=== PATIENT | female | born 1970 | race African-American/Black ===

== ENCOUNTER 2016-06-02 17:48 | Emergency (ER) | payer MEDICARE, MEDICAID ==
[~2016-06-02] VITALS: Ht 162.6 cm; Wt 97.3 kg
[~2016-06-02 17:48] MED LIST: 00186-0370-20 IH; ADVAIR 500/28 DISKU1 IH; ALBUTEROL0.83 MG/ML IH; AMBIEN 10MG10 MG PO; AMLODIPINE10 MG PO; AMPICILLIN500 MG PO; ATROVENT I0.2 MG/1 M IH; BACTRIM DS 8001 TAB PO; BUPROBAN150 MG PO; CEPHALEXIN500 M1 PO; CIPRO 500MG TA500 MG PO; CLEOCIN HCL300 MG PO; DAZIDOX10 MG PO; DOXYCYCLINE 10100 MG PO; EFFEXOR-XR150 MG PO; FENTANYL 25 MCG TD; FLAGYL500 MG PO; FLEXERIL 1010 MG/TAB PO; HCTZ 25MG TAB25 MG PO; HUMALOG PEN100 U/ML SC; HUMALOG100 U/ML SC; HUMALOG100 U/ML SQ; IPRATROPIUM BROM3 M1 IH; LANTUS SOLOS100 U/ML SC; LANTUS100 U/ML; LANTUS100 U/ML SC; LEVAQUIN 750MG750 M1 PO; LORTAB 10/500 51 TAB PO; LORTAB 5/500 501 TAB PO; LYRICA200 MG PO; METFORMIN1000 MG PO; MILLIPRED5 MG PO; MOTRIN 600600 MG/TAB PO; NAPROSYN375 MG PO; NORCO 325 MG-101 TAB PO; NORCO 325 MG-51 TAB PO; NORCO 325 MG-7.1 TAB PO; NORVASC 10MG10 MG PO; OXYCONTIN 10MG10 MG PO; OXYCONTIN15 MG PO; PERCOCET 325 MG1 TA2 PO; PREDNISONE20 MG PO; PROAIR HFA0.09 MG/AC IH; PROVENTIL0.09 MG/A1 IH; RT ALBUTER2.5 MG/0.5 IH; SEPTRA DS 8001 TAB PO; SINGULAIR10 MG PO; SPIRIVA18 MCG IH; SYMBICORT1 AE3 IH; VALTREX1 GM PO; XANAX 1MG1 MG PO; XOPENEX1.25 MG/0. IH; ZITHROMAX 250M250 MG PO; ZITHROMAX Z PA250 MG PO; [UNRECOGNIZED DRUG - SUPPLY]
[2016-06-02 17:51] VITALS: TEMP 98.4
[2016-06-02 18:39] LABS: BASO # 0.1 (0.0-0.2); BASO % 0.5 % (0.0-2.0); EOS # 0.1 (0.0-0.7); EOS % 1.1 % (0-4.0); HEMATOCRIT 37.8 % (37.0-47.0); LYMPH # 3.8 (1.2-3.4); LYMPH % 32.8 % (20.0-51.0); MEAN CELL VOLUME 82 fl (80.0-100.0); MEAN CORPUSCULAR HEMOGLOBIN 28 pg (27.0-31.0); MEAN CORPUSCULAR HGB CONC 34 g/dl (33.0-37.0); MEAN PLATELET VOLUME 11.1 fl (7.4-10.4); MONO # 0.6 (0.1-0.6); MONO % 5.3 % (1.7-9.3); PLATELET COUNT 249 K/mm3 (130-400); RED BLOOD COUNT 4.59 M/mm3 (4.10-5.30); WHITE BLOOD COUNT 11.6 K/mm3 (4.8-10.8)
[2016-06-02 18:51] LABS: ADJUSTED CALCIUM 9.4 mg/dL (8.4-10.2); ALBUMIN 4.1 gm/dL (3.5-5.0); BILIRUBIN,TOTAL 0.7 mg/dL (0.0-1.0); CALCIUM 9.5 mg/dL (8.4-10.2); CREATININE, serum 0.5 mg/dL (0.52-1.25); POTASSIUM 3.7 mmol/L (3.4-5.0); TOTAL PROTEIN 7.7 gm/dL (6.4-8.2)
[2016-06-02 18:56] LABS: PH 5 (5-8); SQUAMOUS EPITHELIAL 0-2 /hpf; URINE APPEARANCE Clear; URINE BACTERIA None Seen /hpf; URINE BILIRUBIN Negative (NEGATIVE); URINE BLOOD 1+ (NEGATIVE); URINE COLOR Straw; URINE GLUCOSE 3+ (NEGATIVE); URINE KETONE Negative (NEGATIVE); URINE RBC 0-2 /hpf; URINE UROBILINOGEN Negative (NEGATIVE)
[2016-06-02] MEDS ORDERED: NORVASC 10MG10 MG PO (19:18)
[2016-06-02 20:12] VITALS: BP 174/108; PULSE 102
== END 2016-06-02 20:13 | disposition home or self-care (01) ==
LOC: COL.ER 17:48
PROVIDERS: Nurse Practitioner
DX: E11.40 Type 2 diabetes mellitus with diabetic neuropathy, unspecified (principal); Z79.84 Long term (current) use of oral hypoglycemic drugs; I10 Essential (primary) hypertension; Z79.4 Long term (current) use of insulin; M79.672 Pain in left foot; M79.671 Pain in right foot
CPT/HCPCS: J1170; J2405; J3010; J7030

== ENCOUNTER 2016-12-07 18:58 | Emergency (ER) | payer MEDICARE, MEDICAID ==
[~2016-12-07] VITALS: Ht 157.5 cm; Wt 90.9 kg
[2016-12-07 19:15] VITALS: TEMP 98
[2016-12-07] MEDS ORDERED: NORVASC 10MG10 MG PO (19:21)
[2016-12-07 21:52] LABS: BASO % 0.2 % (0.0-2.0); GRAN # 14.4 (1.4-6.5); GRAN % 88.4 % (42.2-75.2); HEMATOCRIT 38.6 % (37.0-47.0); HEMOGLOBIN 13.2 g/dl (12.5-16.0); LYMPH # 1.4 (1.2-3.4); LYMPH % 8.7 % (20.0-51.0); MEAN CELL VOLUME 85 fl (80.0-100.0); MEAN CORPUSCULAR HEMOGLOBIN 29 pg (27.0-31.0); MEAN CORPUSCULAR HGB CONC 34 g/dl (33.0-37.0); MONO # 0.3 (0.1-0.6); MONO % 2.1 % (1.7-9.3); PLATELET COUNT 312 K/mm3 (130-400); RED BLOOD COUNT 4.55 M/mm3 (4.10-5.30); REDCELL DISTRIBUTION WIDTH-CV 12.7 % (11.5-14.5); WHITE BLOOD COUNT 16.2 K/mm3 (4.8-10.8)
[2016-12-07 22:02] LABS: ADJUSTED CALCIUM 9.4 mg/dL (8.4-10.2); ALBUMIN 4.4 gm/dL (3.5-5.0); CALCIUM 9.7 mg/dL (8.4-10.2); CREATININE, serum 0.55 mg/dL (0.52-1.25); POTASSIUM 4.5 mmol/L (3.4-5.0)
[2016-12-07 22:22] LABS: TROPONIN-I 0.197 ng/mL (0.000-0.034)
[2016-12-07 22:53] LABS: INR 1.2 (0.8-3.0); PROTHROMBIN TIME 13.2 SECONDS (9.7-12.8)
[2016-12-07 22:55] LABS: PARTIAL THROMBOPLASTIN TIME 29.6 SECONDS (26.0-37.0)
[2016-12-08 00:19] VITALS: BP 177/133; PULSE 116
== END 2016-12-08 00:19 | disposition short-term general hospital (02) ==
LOC: COL.ER 18:58
PROVIDERS: Emergency Medicine; Nurse Practitioner
DX: I21.4 Non-ST elevation (NSTEMI) myocardial infarction (principal); I50.9 Heart failure, unspecified; I11.0 Hypertensive heart disease with heart failure; E11.9 Type 2 diabetes mellitus without complications; J44.9 Chronic obstructive pulmonary disease, unspecified; F41.9 Anxiety disorder, unspecified; M54.9 Dorsalgia, unspecified; F17.210 Nicotine dependence, cigarettes, uncomplicated; Z79.84 Long term (current) use of oral hypoglycemic drugs; Z79.4 Long term (current) use of insulin; Z98.51 Tubal ligation status; Z98.890 Other specified postprocedural states
CPT/HCPCS: J1644; J1815; J1940; J7512; Q9967

== ENCOUNTER 2016-12-30 13:52 | Emergency (ER) | payer MEDICARE, MEDICAID ==
[~2016-12-30] VITALS: Ht 157.5 cm; Wt 95.5 kg
[2016-12-30 13:54] VITALS: TEMP 98.1
[2016-12-30] MEDS ORDERED: PLAVIX 75MG TAB75 MG PO (14:33)
[2016-12-30 14:45] LABS: INR 1.2 (0.8-3.0); PROTHROMBIN TIME 13.4 SECONDS (9.7-12.8)
[2016-12-30 14:52] LABS: BASO # 0.1 (0.0-0.2); BASO % 0.5 % (0.0-2.0); EOS # 0.1 (0.0-0.7); GRAN # 5.8 (1.4-6.5); GRAN % 57.5 % (42.2-75.2); HEMATOCRIT 38.5 % (37.0-47.0); HEMOGLOBIN 13.2 g/dl (12.5-16.0); LYMPH # 3.4 (1.2-3.4); LYMPH % 33.3 % (20.0-51.0); MEAN CELL VOLUME 86 fl (80.0-100.0); MEAN CORPUSCULAR HEMOGLOBIN 30 pg (27.0-31.0); MEAN CORPUSCULAR HGB CONC 34 g/dl (33.0-37.0); MEAN PLATELET VOLUME 11.2 fl (7.4-10.4); MONO # 0.8 (0.1-0.6); MONO % 7.4 % (1.7-9.3); PLATELET COUNT 343 K/mm3 (130-400); RED BLOOD COUNT 4.46 M/mm3 (4.10-5.30); REDCELL DISTRIBUTION WIDTH-CV 12.9 % (11.5-14.5); WHITE BLOOD COUNT 10.1 K/mm3 (4.8-10.8)
[2016-12-30 15:03] LABS: ADJUSTED CALCIUM 9.9 mg/dL (8.4-10.2); ALANINE AMINOTRANSFERASE 24 U/L (9-52); ALBUMIN 4.2 gm/dL (3.5-5.0); ALKALINE PHOSPHATASE 74 U/L (50-136); ANION GAP 13 mmol/L (7-16); BILIRUBIN,TOTAL 0.5 mg/dL (0.0-1.0); BLOOD UREA NITROGEN 13 mg/dL (7-17); CALCIUM 10.1 mg/dL (8.4-10.2); CARBON DIOXIDE 31 mmol/L (22-30); CHLORIDE 92 mmol/L (98-107); CREATINE KINASE 57 U/L (30-135); CREATININE, serum 0.65 mg/dL (0.52-1.25); LIPASE 42 U/L (23-300); POTASSIUM 3.6 mmol/L (3.4-5.0); SODIUM 135 mmol/L (137-145)
[2016-12-30 15:05] LABS: GLUCOSE 487 mg/dL (74-106)
[2016-12-30 15:17] LABS: TROPONIN-I < 0.012 ng/mL (0.000-0.034)
[2016-12-30 15:58] VITALS: BP 141/93; PULSE 102
== END 2016-12-30 16:01 | disposition left against medical advice (07) ==
LOC: COL.ER 13:52 → MEDICAL 15:15 → COL.ER 15:15
PROVIDERS: Emergency Medicine
DX: R53.1 Weakness (principal); E11.9 Type 2 diabetes mellitus without complications; I10 Essential (primary) hypertension; I25.10 Atherosclerotic heart disease of native coronary artery without angina pectoris; J44.9 Chronic obstructive pulmonary disease, unspecified; Z79.4 Long term (current) use of insulin; Z79.02 Long term (current) use of antithrombotics/antiplatelets; Z95.5 Presence of coronary angioplasty implant and graft
CPT/HCPCS: J1815

== ENCOUNTER 2017-02-28 22:43 | Emergency (ER) | payer MEDICARE, MEDICAID ==
[~2017-02-28] VITALS: Ht 157.5 cm; Wt 109.1 kg
[~2017-02-28 22:43] MED LIST changes: +PLAVIX 75MG TAB75 MG PO
[2017-02-28 22:51] VITALS: TEMP 96.7
[2017-02-28] MEDS ORDERED: ZESTRIL 10MG10 MG PO (23:14)
[2017-02-28] MEDS ORDERED: HCTZ 25MG TAB25 MG PO (23:18)
[2017-02-28 23:21] VITALS: BP 131/88; PULSE 102
[2017-02-28 23:21] LABS: BASO # 0.1 (0.0-0.2); BASO % 0.5 % (0.0-2.0); EOS # 0.1 (0.0-0.7); GRAN % 61.5 % (42.2-75.2); HEMOGLOBIN 12.5 g/dl (12.5-16.0); LYMPH # 3.8 (1.2-3.4); MEAN CELL VOLUME 84 fl (80.0-100.0); MEAN CORPUSCULAR HEMOGLOBIN 29 pg (27.0-31.0); MEAN CORPUSCULAR HGB CONC 35 g/dl (33.0-37.0); MEAN PLATELET VOLUME 12.6 fl (7.4-10.4); MONO % 7.7 % (1.7-9.3); PLATELET COUNT 254 K/mm3 (130-400); RED BLOOD COUNT 4.25 M/mm3 (4.10-5.30)
[2017-02-28 23:33] LABS: INR 1.1 (0.8-3.0); PROTHROMBIN TIME 12.6 SECONDS (9.7-12.8)
[2017-02-28 23:38] LABS: HEMATOCRIT 35.7 % (37.0-47.0)
[2017-02-28 23:49] LABS: ADJUSTED CALCIUM 9.9 mg/dL (8.4-10.2); ALANINE AMINOTRANSFERASE 36 U/L (9-52); ALBUMIN 4.2 gm/dL (3.5-5.0); ALKALINE PHOSPHATASE 95 U/L (50-136); ANION GAP 9 mmol/L (7-16); BILIRUBIN,TOTAL 0.5 mg/dL (0.0-1.0); BLOOD UREA NITROGEN 18 mg/dL (7-17); CALCIUM 10.1 mg/dL (8.4-10.2); CARBON DIOXIDE 30 mmol/L (22-30); CHLORIDE 92 mmol/L (98-107); CREATINE KINASE 113 U/L (30-135); LIPASE 72 U/L (23-300); POTASSIUM 3.5 mmol/L (3.4-5.0); SODIUM 131 mmol/L (137-145); TOTAL PROTEIN 7.6 gm/dL (6.4-8.2)
[2017-02-28 23:51] LABS: GLUCOSE 551 mg/dL (74-106)
[2017-03-01] LABS: B-TYPE NATRIURETIC PEPTIDE 258 pg/mL (0-125)
[2017-03-01 00:03] LABS: TROPONIN-I < 0.012 ng/mL (0.000-0.034)
== END 2017-03-01 00:33 | disposition left against medical advice (07) ==
LOC: COL.ER 22:43
PROVIDERS: Emergency Medicine
DX: R07.89 Other chest pain (principal); E11.9 Type 2 diabetes mellitus without complications; I11.0 Hypertensive heart disease with heart failure; I50.9 Heart failure, unspecified; J44.9 Chronic obstructive pulmonary disease, unspecified; I25.2 Old myocardial infarction; F17.210 Nicotine dependence, cigarettes, uncomplicated; Z95.5 Presence of coronary angioplasty implant and graft; Z98.51 Tubal ligation status; Z98.890 Other specified postprocedural states

== ENCOUNTER 2017-04-27 07:32 | Day surgery (SDC) | payer MEDICARE, MEDICAID ==
[2017-04-27] VITALS (12 sets, daily range): BP systolic 116–155; BP diastolic 77–121; PULSE 80–99; TEMP 97.3–97.7
[~2017-04-27] VITALS: Ht 157.6 cm; Wt 104.0 kg
[~2017-04-27 07:32] MED LIST changes: +ZESTRIL 10MG10 MG PO
[2017-04-27 08:10] LABS: HEMOGLOBIN 12.5 g/dl (12.5-16.0); MEAN CELL VOLUME 85 fl (80.0-100.0); MEAN CORPUSCULAR HEMOGLOBIN 30 pg (27.0-31.0); MEAN CORPUSCULAR HGB CONC 35 g/dl (33.0-37.0); PLATELET COUNT 222 K/mm3 (130-400); RED BLOOD COUNT 4.23 M/mm3 (4.10-5.30); REDCELL DISTRIBUTION WIDTH-CV 12.9 % (11.5-14.5)
[2017-04-27 08:12] LABS: HEMATOCRIT 35.9 % (37.0-47.0)
[2017-04-27] MEDS ORDERED: VENTOLIN0.09 MG IH (08:13)
[2017-04-27] MEDS ORDERED: ALBUTEROL0.83 MG/ML IH (08:14)
[2017-04-27 08:22] LABS: INR 1.1 (0.8-3.0); PROTHROMBIN TIME 12.4 SECONDS (9.7-12.8)
[2017-04-27 08:30] LABS: CALCIUM 9.6 mg/dL (8.4-10.2); CREATININE, serum 0.73 mg/dL (0.52-1.25); POTASSIUM 3.5 mmol/L (3.4-5.0)
[2017-04-27] MEDS ORDERED: ELAVIL100 MG PO (08:56)
[2017-04-27] MEDS ORDERED: LIPITOR 80MG80 MG PO (08:57)
[2017-04-27] MEDS ORDERED: ASPIRIN E.C. 8181 MG PO (08:57)
[2017-04-27] MEDS ORDERED: COREG 25MG25 MG/TAB PO (08:58)
[2017-04-27] MEDS ORDERED: COMBIRESP IH (09:00)
[2017-04-27] MEDS ORDERED: IPRATROPIUM BROM3 M1 IH (09:05)
[2017-04-27] MEDS ORDERED: ALLEGRA 180MG180 MG PO (09:06)
[2017-04-27] MEDS ORDERED: NORCO 325 MG-7.1 TAB PO (09:07)
[2017-04-27] MEDS ORDERED: LASIX 40MG TABL40 MG PO (09:07)
[2017-04-27] MEDS ORDERED: NOVOLOG 100U100 U/M1 SQ (09:08)
[2017-04-27] MEDS ORDERED: IMDUR 60MG60 MG/TAB PO (09:09)
[2017-04-27] MEDS ORDERED: LYRICA 150MG C150 MG PO (09:11)
[2017-04-27] MEDS ORDERED: SINGULAIR 110 MG/TAB PO (09:12)
[2017-04-27] MEDS ORDERED: MAG-OX 400400 MG/TAB PO (09:12)
[2017-04-27] MEDS ORDERED: MULTI VITAMINS1 TAB PO (09:12)
[2017-04-27] MEDS ORDERED: NITROSTAT0.4 MG/TAB SL (09:13)
[2017-04-27] MEDS ORDERED: ZANTAC 300300 MG PO (09:13)
[2017-04-27] MEDS ORDERED: B-121000 MCG PO (09:14)
[2017-04-27] MEDS ORDERED: AMBIEN 10MG10 MG PO (09:14)
[2017-04-27] MEDS ORDERED: COREG12.5 MG PO (10:36)
[2017-04-27] MEDS ORDERED: NORVASC 5MG5 MG/TAB PO (10:36)
== END 2017-04-27 14:53 | disposition home or self-care (01) ==
LOC: COL.CAR 07:32
PROVIDERS: Internal Medicine Cardiovascular Disease
DX: I25.119 Atherosclerotic heart disease of native coronary artery with unspecified angina pectoris (principal); R94.39 Abnormal result of other cardiovascular function study; J44.9 Chronic obstructive pulmonary disease, unspecified; I11.0 Hypertensive heart disease with heart failure; I50.20 Unspecified systolic (congestive) heart failure; I24.9 Acute ischemic heart disease, unspecified; F31.9 Bipolar disorder, unspecified; E11.40 Type 2 diabetes mellitus with diabetic neuropathy, unspecified; F17.210 Nicotine dependence, cigarettes, uncomplicated; Z79.4 Long term (current) use of insulin; Z79.01 Long term (current) use of anticoagulants; Z79.82 Long term (current) use of aspirin; Z95.5 Presence of coronary angioplasty implant and graft; Z83.3 Family history of diabetes mellitus
CPT/HCPCS: C1769; J1644; J1815; J2250; J3010; Q9967

== ENCOUNTER 2017-07-07 19:52 | Emergency (ER) | payer MEDICARE, MEDICAID ==
[~2017-07-07] VITALS: Ht 157.5 cm; Wt 104.5 kg
[~2017-07-07 19:52] MED LIST changes: +ALLEGRA 180MG180 MG PO; +ASPIRIN E.C. 8181 MG PO; +B-121000 MCG PO; +COMBIRESP IH; +COREG 25MG25 MG/TAB PO; +COREG12.5 MG PO; +ELAVIL100 MG PO; +IMDUR 60MG60 MG/TAB PO; +LASIX 40MG TABL40 MG PO; +LIPITOR 80MG80 MG PO; +LYRICA 150MG C150 MG PO; +MAG-OX 400400 MG/TAB PO; +MULTI VITAMINS1 TAB PO; +NITROSTAT0.4 MG/TAB SL; +NORVASC 5MG5 MG/TAB PO; +NOVOLOG 100U100 U/M1 SQ; +SINGULAIR 110 MG/TAB PO; +VENTOLIN0.09 MG IH; +ZANTAC 300300 MG PO
[2017-07-07 20:01] VITALS: BP 118/69; TEMP 98
[2017-07-07 20:34] LABS: COLLECTION METHOD CLEAN CATCH
[2017-07-07 20:41] LABS: PH 5 (5-8); SQUAMOUS EPITHELIAL 0-2 /hpf; URINE APPEARANCE Clear; URINE BACTERIA None Seen /hpf; URINE BILIRUBIN Negative (NEGATIVE); URINE BLOOD Negative (NEGATIVE); URINE COLOR Straw; URINE GLUCOSE 3+ (NEGATIVE); URINE KETONE Negative (NEGATIVE); URINE LEUKOCYTE ESTERASE Negative (NEGATIVE); URINE NITRATE Negative (NEGATIVE); URINE PROTEIN(semi-quant) Negative (NEGATIVE); URINE RBC 0-2 /hpf; URINE UROBILINOGEN Negative (NEGATIVE)
[2017-07-07] MEDS ORDERED: FLEXERIL 1010 MG/TAB PO (20:58)
[2017-07-07 21:20] VITALS: PULSE 90
== END 2017-07-07 21:20 | disposition home or self-care (01) ==
LOC: COL.ER 19:52
PROVIDERS: Physician Assistant
DX: S33.9XXA Sprain of unspecified parts of lumbar spine and pelvis, initial encounter (principal); M46.1 Sacroiliitis, not elsewhere classified; E11.9 Type 2 diabetes mellitus without complications; I10 Essential (primary) hypertension; I25.10 Atherosclerotic heart disease of native coronary artery without angina pectoris; I25.2 Old myocardial infarction; J44.9 Chronic obstructive pulmonary disease, unspecified; F17.210 Nicotine dependence, cigarettes, uncomplicated; Z95.5 Presence of coronary angioplasty implant and graft; Z98.51 Tubal ligation status; Z98.890 Other specified postprocedural states; Z79.4 Long term (current) use of insulin; Z79.02 Long term (current) use of antithrombotics/antiplatelets; Z79.82 Long term (current) use of aspirin; X50.0XXA Overexertion from strenuous movement or load, initial encounter
CPT/HCPCS: J2360

== ENCOUNTER 2017-07-09 19:54 | Emergency (ER) | payer MEDICARE, MEDICAID ==
[~2017-07-09] VITALS: Ht 162.6 cm; Wt 113.6 kg
[2017-07-09 19:55] VITALS: BP 155/77; PULSE 98; TEMP 98.5
== END 2017-07-09 20:01 | disposition left against medical advice (07) ==
LOC: COL.ER 19:54
DX: R53.81 Other malaise (principal)

== ENCOUNTER 2017-07-17 20:44 | Emergency (ER) | payer MEDICARE, MEDICAID ==
[~2017-07-17] VITALS: Ht 157.5 cm; Wt 104.5 kg
[2017-07-17 20:49] VITALS: BP 153/80; TEMP 98.9
[2017-07-18 00:44] VITALS: PULSE 100
== END 2017-07-18 00:45 | disposition home or self-care (01) ==
LOC: COL.ER 20:44
DX: R21 Rash and other nonspecific skin eruption (principal); I11.0 Hypertensive heart disease with heart failure; I50.9 Heart failure, unspecified; I25.10 Atherosclerotic heart disease of native coronary artery without angina pectoris; J44.9 Chronic obstructive pulmonary disease, unspecified; E11.9 Type 2 diabetes mellitus without complications; I25.2 Old myocardial infarction; Z79.4 Long term (current) use of insulin; Z79.82 Long term (current) use of aspirin

== ENCOUNTER 2017-09-04 09:44 | Emergency (ER) | payer MEDICARE, MEDICAID ==
[~2017-09-04] VITALS: Ht 154.9 cm; Wt 97.7 kg
[2017-09-04 09:47] VITALS: TEMP 98.1
[2017-09-04 10:51] VITALS: BP 131/78; PULSE 101
== END 2017-09-04 10:51 | disposition home or self-care (01) ==
LOC: COL.ER 09:44
DX: E11.21 Type 2 diabetes mellitus with diabetic nephropathy (principal); J45.909 Unspecified asthma, uncomplicated; I10 Essential (primary) hypertension; Z79.4 Long term (current) use of insulin; Z79.02 Long term (current) use of antithrombotics/antiplatelets; Z79.82 Long term (current) use of aspirin

== ENCOUNTER 2017-11-02 12:25 | Emergency (ER) | payer MEDICARE, MEDICAID ==
[~2017-11-02] VITALS: Ht 157.5 cm; Wt 100.0 kg
[2017-11-02 12:38] VITALS: TEMP 97.3
[2017-11-02 13:01] LABS: COLLECTION METHOD CLEAN CATCH
[2017-11-02 13:05] LABS: PH 6 (5-8); SQUAMOUS EPITHELIAL 0-2 /hpf; URINE APPEARANCE Clear; URINE BACTERIA None Seen /hpf; URINE BILIRUBIN Negative (NEGATIVE); URINE BLOOD Negative (NEGATIVE); URINE COLOR Straw; URINE GLUCOSE 3+ (NEGATIVE); URINE KETONE Negative (NEGATIVE); URINE LEUKOCYTE ESTERASE Negative (NEGATIVE); URINE NITRATE Negative (NEGATIVE); URINE PROTEIN(semi-quant) Negative (NEGATIVE); URINE RBC 0-2 /hpf; URINE UROBILINOGEN Negative (NEGATIVE)
[2017-11-02 13:43] LABS: BASO % 0.2 % (0.0-2.0); EOS # 0.1 (0.0-0.7); EOS % 0.7 % (0-4.0); GRAN # 10.9 (1.4-6.5); GRAN % 73.6 % (42.2-75.2); HEMOGLOBIN 11.9 g/dl (12.5-16.0); LYMPH # 2.3 (1.2-3.4); LYMPH % 15.2 % (20.0-51.0); MEAN CELL VOLUME 86 fl (80.0-100.0); MEAN CORPUSCULAR HEMOGLOBIN 30 pg (27.0-31.0); MEAN CORPUSCULAR HGB CONC 35 g/dl (33.0-37.0); MEAN PLATELET VOLUME 10.6 fl (7.4-10.4); MONO # 1.5 (0.1-0.6); MONO % 9.9 % (1.7-9.3); PLATELET COUNT 294 K/mm3 (130-400); RED BLOOD COUNT 3.93 M/mm3 (4.10-5.30); REDCELL DISTRIBUTION WIDTH-CV 14.7 % (11.5-14.5)
[2017-11-02 13:49] LABS: HEMATOCRIT 33.9 % (37.0-47.0)
[2017-11-02 13:56] LABS: ALBUMIN 3.8 gm/dL (3.5-5.0); BILIRUBIN,TOTAL 0.4 mg/dL (0.0-1.0); C-REACTIVE PROTEIN 6.8 mg/dL (0.0-0.9); CREATININE, serum 0.57 mg/dL (0.52-1.25); POTASSIUM 3.3 mmol/L (3.4-5.0); TOTAL PROTEIN 7.3 gm/dL (6.4-8.2)
[2017-11-02] MEDS ORDERED: ZOFRAN ODT4 MG PO (18:02)
[2017-11-02 18:10] VITALS: BP 144/67; PULSE 90
== END 2017-11-02 18:11 | disposition home or self-care (01) ==
LOC: COL.ER 12:25
PROVIDERS: Nurse Practitioner Primary Care
DX: R10.11 Right upper quadrant pain (principal); I10 Essential (primary) hypertension; E11.40 Type 2 diabetes mellitus with diabetic neuropathy, unspecified; J44.9 Chronic obstructive pulmonary disease, unspecified; F17.210 Nicotine dependence, cigarettes, uncomplicated; I25.2 Old myocardial infarction; Z95.5 Presence of coronary angioplasty implant and graft; Z79.4 Long term (current) use of insulin; Z79.02 Long term (current) use of antithrombotics/antiplatelets
CPT/HCPCS: J1885; Q9967

== ENCOUNTER 2017-12-26 18:34 | Emergency (ER) | payer MEDICARE, MEDICAID ==
[~2017-12-26] VITALS: Ht 157.5 cm; Wt 90.9 kg
[~2017-12-26 18:34] MED LIST changes: +ZOFRAN ODT4 MG PO
[2017-12-26 18:42] VITALS: TEMP 98.1
[2017-12-26 21:24] VITALS: BP 181/98; PULSE 98
== END 2017-12-26 21:24 | disposition home or self-care (01) ==
LOC: COL.ER 18:34
DX: K59.00 Constipation, unspecified (principal); E11.9 Type 2 diabetes mellitus without complications; I50.9 Heart failure, unspecified; Z95.5 Presence of coronary angioplasty implant and graft; Z79.4 Long term (current) use of insulin; Z79.82 Long term (current) use of aspirin

== ENCOUNTER 2018-03-16 18:53 | Emergency (ER) | payer MEDICARE, MEDICAID ==
[~2018-03-16] VITALS: Ht 162.6 cm; Wt 86.4 kg
[2018-03-16 19:02] VITALS: TEMP 98
[2018-03-16 22:29] VITALS: BP 151/104; PULSE 110
== END 2018-03-16 22:34 | disposition home or self-care (01) ==
LOC: COL.ER 18:53
DX: H16.002 Unspecified corneal ulcer, left eye (principal); I10 Essential (primary) hypertension; J44.9 Chronic obstructive pulmonary disease, unspecified; E78.5 Hyperlipidemia, unspecified; E11.42 Type 2 diabetes mellitus with diabetic polyneuropathy; F17.210 Nicotine dependence, cigarettes, uncomplicated; Z79.4 Long term (current) use of insulin; Z79.82 Long term (current) use of aspirin

== ENCOUNTER 2018-05-22 20:15 | Emergency (ER) | payer MEDICARE ==
[~2018-05-22] VITALS: Ht 157.5 cm; Wt 90.9 kg
[2018-05-22 20:19] VITALS: TEMP 97.5
[2018-05-22 20:53] LABS: BASO # 0.1 (0.0-0.2); BASO % 0.4 % (0.0-2.0); EOS # 0.1 (0.0-0.7); EOS % 0.5 % (0-4.0); GRAN # 7.7 (1.4-6.5); GRAN % 67.8 % (42.2-75.2); HEMOGLOBIN 11.4 g/dl (12.5-16.0); LYMPH # 2.9 (1.2-3.4); LYMPH % 25.3 % (20.0-51.0); MEAN CELL VOLUME 80 fl (80.0-100.0); MEAN CORPUSCULAR HEMOGLOBIN 27 pg (27.0-31.0); MEAN CORPUSCULAR HGB CONC 33 g/dl (33.0-37.0); MEAN PLATELET VOLUME 11.3 fl (7.4-10.4); MONO # 0.7 (0.1-0.6); MONO % 5.7 % (1.7-9.3); PLATELET COUNT 313 K/mm3 (130-400); RED BLOOD COUNT 4.26 M/mm3 (4.10-5.30); REDCELL DISTRIBUTION WIDTH-CV 15.7 % (11.5-14.5)
[2018-05-22 20:59] LABS: HEMATOCRIT 34.1 % (37.0-47.0)
[2018-05-22 21:03] LABS: ALBUMIN 3.6 gm/dL (3.5-5.0); BILIRUBIN,TOTAL 0.6 mg/dL (0.0-1.0); CALCIUM 9.4 mg/dL (8.4-10.2); CREATININE, serum 0.57 mg/dL (0.52-1.25); POTASSIUM 3.3 mmol/L (3.4-5.0); TOTAL PROTEIN 7.5 gm/dL (6.4-8.2)
[2018-05-22 22:05] VITALS: BP 183/121; PULSE 98
[2018-05-22] MEDS ORDERED: LASIX 80MG TABL80 MG PO (22:05)
[2018-05-22] MEDS ORDERED: K-DUR 10 MEQ T10 MEQ PO (22:26)
== END 2018-05-22 22:32 | disposition home or self-care (01) ==
LOC: COL.ER 20:15
PROVIDERS: Emergency Medicine
DX: I10 Essential (primary) hypertension (principal); R60.0 Localized edema; I25.10 Atherosclerotic heart disease of native coronary artery without angina pectoris; E11.9 Type 2 diabetes mellitus without complications; J44.9 Chronic obstructive pulmonary disease, unspecified; G89.29 Other chronic pain; F17.210 Nicotine dependence, cigarettes, uncomplicated; Z79.4 Long term (current) use of insulin; Z79.2 Long term (current) use of antibiotics; Z79.82 Long term (current) use of aspirin; Z95.5 Presence of coronary angioplasty implant and graft

== ENCOUNTER 2018-06-15 17:20 | Emergency (ER) | payer MEDICARE ==
[~2018-06-15] VITALS: Ht 157.5 cm; Wt 90.9 kg
[~2018-06-15 17:20] MED LIST changes: +K-DUR 10 MEQ T10 MEQ PO; +LASIX 80MG TABL80 MG PO
[2018-06-15 17:34] VITALS: TEMP 98.5
[2018-06-15 18:29] LABS: BASO % 0.4 % (0.0-2.0); EOS # 0.1 (0.0-0.7); EOS % 0.6 % (0-4.0); GRAN # 7.5 (1.4-6.5); GRAN % 69.5 % (42.2-75.2); HEMATOCRIT 38.6 % (37.0-47.0); HEMOGLOBIN 13.3 g/dl (12.5-16.0); LYMPH # 2.5 (1.2-3.4); LYMPH % 22.9 % (20.0-51.0); MEAN CELL VOLUME 77 fl (80.0-100.0); MEAN CORPUSCULAR HEMOGLOBIN 27 pg (27.0-31.0); MEAN CORPUSCULAR HGB CONC 35 g/dl (33.0-37.0); MEAN PLATELET VOLUME 10.6 fl (7.4-10.4); MONO # 0.7 (0.1-0.6); MONO % 6.3 % (1.7-9.3); PLATELET COUNT 239 K/mm3 (130-400); RED BLOOD COUNT 5.02 M/mm3 (4.10-5.30)
[2018-06-15] MEDS ORDERED: LASIX 80MG TABL80 MG PO (18:37)
[2018-06-15] MEDS ORDERED: NITRO-DUR0.2 MG/PAT TD (18:39)
[2018-06-15 18:41] LABS: ALBUMIN 3.8 gm/dL (3.5-5.0); BILIRUBIN,TOTAL 0.4 mg/dL (0.0-1.0); CALCIUM 9.2 mg/dL (8.4-10.2); CREATININE, serum 0.66 (0.52-1.25)
[2018-06-15 18:52] LABS: TROPONIN-I 0.012 ng/mL (0.000-0.035)
[2018-06-15 18:56] LABS: POTASSIUM 2.8 mmol/L (3.4-5.0)
[2018-06-15] MEDS ORDERED: NOVOLOG 100U100 U/M1 SQ (20:11)
[2018-06-15] MEDS ORDERED: LANTUS SOLOS100 U/ML SQ (20:11)
[2018-06-15 20:50] VITALS: BP 161/95; PULSE 103
[2018-06-15] MEDS ORDERED: K-DUR20 MEQ PO (21:59)
== END 2018-06-15 22:20 | disposition home or self-care (01) ==
LOC: COL.ER 17:20
PROVIDERS: Nurse Practitioner
DX: R60.9 Edema, unspecified (principal); R07.89 Other chest pain; I25.10 Atherosclerotic heart disease of native coronary artery without angina pectoris; F17.210 Nicotine dependence, cigarettes, uncomplicated; E11.42 Type 2 diabetes mellitus with diabetic polyneuropathy; J45.909 Unspecified asthma, uncomplicated; F41.9 Anxiety disorder, unspecified; I50.9 Heart failure, unspecified; Z98.51 Tubal ligation status; Z98.890 Other specified postprocedural states; Z79.82 Long term (current) use of aspirin; Z79.02 Long term (current) use of antithrombotics/antiplatelets; Z79.4 Long term (current) use of insulin
CPT/HCPCS: J1815; J2270; J3480

== ENCOUNTER → 2018-06-30 | Outpatient (CLI) | payer MEDICARE, MEDICAID ==
[~2018-06-30] MED LIST changes: +K-DUR20 MEQ PO; +LANTUS SOLOS100 U/ML SQ; +NITRO-DUR0.2 MG/PAT TD
== END ==
LOC: COL.RAD 06-16 10:30
DX: E11.42 Type 2 diabetes mellitus with diabetic polyneuropathy (principal); M79.604 Pain in right leg

== ENCOUNTER 2019-01-04 12:48 | Day surgery (SDC) | payer MEDICARE, MEDICAID ==
[~2019-01-04] VITALS: Ht 157.5 cm; Wt 97.9 kg
[2019-01-04] VITALS (384 sets, daily range): BP systolic 121–148; BP diastolic 78–107; PULSE 89–110; TEMP 97.9–98.1; O2SAT 62–100
[2019-01-04] MEDS ORDERED: IPRATROPIUM BROM3 M1 IH (14:03)
[2019-01-04] MEDS ORDERED: GLUCOPHAGE500 MG/TAB PO (14:04)
[2019-01-04] MEDS ORDERED: COREG 25MG25 MG/TAB PO (14:11)
[2019-01-04] MEDS ORDERED: LIPITOR 40MG TA40 MG PO (14:12)
[2019-01-04] MEDS ORDERED: HCTZ12.5TAB PO (14:16)
[2019-01-04 15:37] LABS: MEAN CELL VOLUME 83 fl (80.0-100.0); MEAN CORPUSCULAR HGB CONC 33 g/dl (33.0-37.0); MEAN PLATELET VOLUME 10.2 fl (7.4-10.4); PLATELET COUNT 302 K/mm3 (130-400); RED BLOOD COUNT 3.58 M/mm3 (4.10-5.30); REDCELL DISTRIBUTION WIDTH-CV 14.8 % (11.5-14.5)
[2019-01-04 15:40] LABS: HEMATOCRIT 29.7 % (37.0-47.0); HEMOGLOBIN 9.9 g/dl (12.5-16.0); MEAN CORPUSCULAR HEMOGLOBIN 28 pg (27.0-31.0)
[2019-01-04 15:43] LABS: INR 1.1 (0.8-3.0); PROTHROMBIN TIME 13.4 SECONDS (9.7-12.8)
[2019-01-04 15:49] LABS: CALCIUM 9.3 mg/dL (8.4-10.2); CREATININE, serum 0.76 (0.52-1.25); POTASSIUM 3.1 mmol/L (3.4-5.0)
[2019-01-05] VITALS (592 sets, daily range): BP systolic 116–144; BP diastolic 84–104; PULSE 91–94; TEMP 97.8–98.6; O2SAT 67–100
[2019-01-05] MEDS ORDERED: BRILINTA90 MG PO (08:01)
== END 2019-01-05 12:57 | disposition home or self-care (01) ==
LOC: COL.CAR 12:48 → ICU 17:05 → COL.CAR 17:05
PROVIDERS: Internal Medicine Cardiovascular Disease
DX: I25.118 Atherosclerotic heart disease of native coronary artery with other forms of angina pectoris (principal); I25.9 Chronic ischemic heart disease, unspecified; I10 Essential (primary) hypertension; E78.5 Hyperlipidemia, unspecified; I73.9 Peripheral vascular disease, unspecified; J44.9 Chronic obstructive pulmonary disease, unspecified; E11.9 Type 2 diabetes mellitus without complications; F17.210 Nicotine dependence, cigarettes, uncomplicated; G47.33 Obstructive sleep apnea (adult) (pediatric); I25.10 Atherosclerotic heart disease of native coronary artery without angina pectoris; Z79.82 Long term (current) use of aspirin; Z86.73 Personal history of transient ischemic attack (TIA), and cerebral infarction without residual deficits; Z98.61 Coronary angioplasty status
CPT/HCPCS: OP; C1725; C1769; C1874; C1887; C1894; C9600; J1644; J2250; J3010; Q9967

== ENCOUNTER 2019-04-14 22:20 | Emergency (ER) | payer MEDICARE, MEDICAID ==
[~2019-04-14] VITALS: Ht 157.5 cm; Wt 100.0 kg
[~2019-04-14 22:20] MED LIST changes: +BRILINTA90 MG PO; +GLUCOPHAGE500 MG/TAB PO; +HCTZ12.5TAB PO; +LIPITOR 40MG TA40 MG PO
[2019-04-14 22:22] VITALS: BP 174/107; PULSE 106; TEMP 97.6
== END 2019-04-14 22:50 | disposition left against medical advice (07) ==
LOC: COL.ER 22:20
DX: R06.02 Shortness of breath (principal); I11.0 Hypertensive heart disease with heart failure; I50.9 Heart failure, unspecified; E78.5 Hyperlipidemia, unspecified; J44.9 Chronic obstructive pulmonary disease, unspecified; E11.40 Type 2 diabetes mellitus with diabetic neuropathy, unspecified; Z79.84 Long term (current) use of oral hypoglycemic drugs; Z79.82 Long term (current) use of aspirin

== ENCOUNTER 2019-05-06 14:03 | Emergency (ER) | payer MEDICARE, MEDICAID ==
[~2019-05-06] VITALS: Ht 157.5 cm; Wt 104.5 kg
[2019-05-06 14:14] VITALS: BP 145/100; TEMP 97.4
[2019-05-06] MEDS ORDERED: CEPHALEXIN500 M1 PO (15:05)
[2019-05-06] MEDS ORDERED: DOXYCYCLINE 10100 MG PO (15:05)
[2019-05-06] MEDS ORDERED: LOTRISONE CREAM15 GM TP (15:16)
[2019-05-06 15:30] VITALS: PULSE 99
== END 2019-05-06 15:30 | disposition home or self-care (01) ==
LOC: COL.ER 14:03
DX: L03.311 Cellulitis of abdominal wall (principal); I25.10 Atherosclerotic heart disease of native coronary artery without angina pectoris; I10 Essential (primary) hypertension; E11.40 Type 2 diabetes mellitus with diabetic neuropathy, unspecified; F17.210 Nicotine dependence, cigarettes, uncomplicated; Z98.51 Tubal ligation status; Z79.82 Long term (current) use of aspirin; Z79.84 Long term (current) use of oral hypoglycemic drugs

== ENCOUNTER 2020-04-13 14:34 | Emergency (ER) | payer MEDICARE, MEDICAID ==
[~2020-04-13] VITALS: Ht 157.5 cm; Wt 90.9 kg
[~2020-04-13 14:34] MED LIST changes: +LOTRISONE CREAM15 GM TP
[2020-04-13 16:47] LABS: HEMOGLOBIN 10.4 g/dl (12.5-16.0); MEAN CELL VOLUME 86 fl (80.0-100.0); MEAN CORPUSCULAR HEMOGLOBIN 29 pg (27.0-31.0); MEAN CORPUSCULAR HGB CONC 33 g/dl (33.0-37.0); MEAN PLATELET VOLUME 12.3 fl (7.4-10.4); PLATELET COUNT 341 K/mm3 (130-400); RED BLOOD COUNT 3.62 M/mm3 (4.10-5.30); REDCELL DISTRIBUTION WIDTH-CV 17.4 % (11.5-14.5)
[2020-04-13 16:50] LABS: HEMATOCRIT 31.1 % (37.0-47.0)
[2020-04-13 17:01] LABS: ALBUMIN 3.5 gm/dL (3.5-5.0); BILIRUBIN,TOTAL 2.2 mg/dL (0.0-1.0); CALCIUM 9.6 mg/dL (8.4-10.2); CREATININE, serum 0.93 (0.52-1.25); POTASSIUM 4.8 mmol/L (3.4-5.0)
[2020-04-13] MEDS ORDERED: BACTRIM DS 8001 TAB PO (17:18)
[2020-04-13 17:23] LABS: LYMPHOCYTE 16 % (20.0-51.0); METAMYELOCYTE 1 % (0-0); NEUTROPHILS 77 % (42.0-75.2)
[2020-04-13 17:25] VITALS: BP 148/84; PULSE 88; TEMP 97.7
[2020-04-13 17:26] LABS: ANISOCYTOSIS 1+; PLATELET ESTIMATE NORMAL (NORMAL); TARGET CELLS 1+
[2020-04-15 08:16] LABS: PATHOLOGY DIFF REVIEW OK
[2020-04-16] MEDS ORDERED: DOXYCYCLINE HY100 MG PO (19:46)
== END 2020-04-13 17:34 | disposition home or self-care (01) ==
LOC: COL.ER 14:34
PROVIDERS: Physician Assistant
DX: L02.219 Cutaneous abscess of trunk, unspecified (principal); E11.65 Type 2 diabetes mellitus with hyperglycemia; J44.9 Chronic obstructive pulmonary disease, unspecified; I10 Essential (primary) hypertension; I25.10 Atherosclerotic heart disease of native coronary artery without angina pectoris; F17.210 Nicotine dependence, cigarettes, uncomplicated; Z95.9 Presence of cardiac and vascular implant and graft, unspecified; Z79.02 Long term (current) use of antithrombotics/antiplatelets; Z79.82 Long term (current) use of aspirin; Z79.84 Long term (current) use of oral hypoglycemic drugs
CPT/HCPCS: J3010

== ENCOUNTER 2020-05-08 13:49 | Observation (INO) | payer MEDICARE, MEDICAID ==
[~2020-05-08] VITALS: Ht 157.5 cm; Wt 88.6 kg
[~2020-05-08 13:49] MED LIST changes: +DOXYCYCLINE HY100 MG PO
[2020-05-08 15:58] LABS: BASO % 0.5 % (0.0-2.0); EOS # 0.1 (0.0-0.7); GRAN # 6.1 (1.4-6.5); HEMOGLOBIN 10.8 g/dl (12.5-16.0); LYMPH # 1.5 (1.2-3.4); LYMPH % 17.2 % (20.0-51.0); MEAN CELL VOLUME 87 fl (80.0-100.0); MEAN CORPUSCULAR HEMOGLOBIN 28 pg (27.0-31.0); MEAN CORPUSCULAR HGB CONC 32 g/dl (33.0-37.0); MEAN PLATELET VOLUME 11.5 fl (7.4-10.4); MONO # 0.8 (0.1-0.6); MONO % 8.9 % (1.7-9.3); PLATELET COUNT 275 K/mm3 (130-400); RED BLOOD COUNT 3.82 M/mm3 (4.10-5.30); REDCELL DISTRIBUTION WIDTH-CV 17.4 % (11.5-14.5)
[2020-05-08 15:59] LABS: HEMATOCRIT 33.4 % (37.0-47.0)
[2020-05-08 16:06] LABS: INR 1.5 (0.8-3.0); PROTHROMBIN TIME 17.1 SECONDS (9.7-12.8)
[2020-05-08 16:09] LABS: PARTIAL THROMBOPLASTIN TIME 27.8 SECONDS (26.0-37.0)
[2020-05-08 16:10] LABS: ALANINE AMINOTRANSFERASE 16 U/L (4-34); ALBUMIN 3.5 gm/dL (3.5-5.0); ALKALINE PHOSPHATASE 108 U/L (50-136); ANION GAP 11 mmol/L (7-16); AST,SGOT 28 U/L (15-37); BILIRUBIN,TOTAL 1.7 mg/dL (0.0-1.0); BLOOD UREA NITROGEN 15 mg/dL (7-17); CALCIUM 9.3 mg/dL (8.4-10.2); CARBON DIOXIDE 24 mmol/L (22-30); CHLORIDE 105 mmol/L (98-107); CREATININE, serum 1.09 (0.52-1.25); GLUCOSE 167 mg/dL (74-106); POTASSIUM 3.7 mmol/L (3.4-5.0); SODIUM 141 mmol/L (137-145); TOTAL PROTEIN 7.6 gm/dL (6.4-8.2)
[2020-05-08 16:24] LABS: TROPONIN-I < 0.012 ng/mL (0.000-0.035)
[2020-05-08 16:58] LABS: LIPASE 53 U/L (23-300)
--- NOTE | 2020-05-08 18:32 | NUR ---
Pt up to room 318, report taken on phone from ER nurse. Pt up to room during bedside report w/ hazmat cdl a driver, report given to ANGY Harrington
[2020-05-08 19:29] VITALS: BP 140/78; PULSE 89
--- NOTE | 2020-05-08 20:30 | NUR ---
Patient assessed at this time. Alert and oriented, and able to make needs known. Reported elvel 9 paint to right foot. Given PRN Oxycodone as ordered. INT to left AC flushed. Site without redness, warmth, swelling, and pain. Denies having SOB and dsypnea. LS CTA. Respirations even and unlabored. HRR. Telemetry in place. Capillary refill less than 3 seconds. Non-tenting skin turgor. BSAx4. Abdomen soft and non-tender. Edema/redness to BLE. Dressing to spider bite changed. Cleaned out area. Yellow drainage. Wet-to-dry dressing applied for tonight. Pustules all over back, on arms, and legs. No opened/draining sites noted. Sores to right foot without any drainage. Stated that she had taken a needle to right big toe to "drain pus" at home. Oriented patient and daughter to room. Voices no questions, needs, or concerns at this time. Resting in bed with call light within reach.
--- NOTE | 2020-05-08 23:48 | NUR ---
Patient complaining of level 10 pain to right leg and neck. Given PRN Morphine for pain at this time.
[2020-05-08 23:53] VITALS: BP 95/70; PULSE 69; TEMP 97.4
[2020-05-09 03:46] VITALS: BP 85/53; PULSE 54
[2020-05-09 04:00] VITALS: BP 98/74; PULSE 62
--- NOTE | 2020-05-09 05:21 | NUR ---
Patient has received PRN pain medications as requested during the night. Has been NPO since midnight per orders for possible I&D. Voices no questions, needs, or concerns at this time. Resting in bed with call light within reach.
[2020-05-09 07:37] VITALS: BP 91/74; PULSE 64; TEMP 98.1
--- NOTE | 2020-05-09 07:42 | NUR ---
Lab informed this nurse that patient was refusing blood cultures this morning. This nurse in to see patient. Pt having vitals taken at this time w/ IRRIGATION SUPERVISOR. Pt has mumbled speech, half asleep, difficult to understand. Pt refusing to have lab cultures this morning, stating "its too early for all this". Discussed w/ patient goals of care, pt refusing this morning. Will inform hospitalist.
--- NOTE | 2020-05-09 08:52 | NUR ---
New lab orders placed. I discussed w/ patient about importance of obtaining labs to continue w/ goals of care. pt agreed to labs. Pt placed on MRSA contact precautions.
[2020-05-09 09:12] LABS: BASO % 0.4 % (0.0-2.0); EOS % 0.6 % (0-4.0); GRAN # 3.2 (1.4-6.5); GRAN % 63.5 % (42.2-75.2); HEMATOCRIT 29.9 % (37.0-47.0); HEMOGLOBIN 9.5 g/dl (12.5-16.0); LYMPH # 1.3 (1.2-3.4); LYMPH % 26.1 % (20.0-51.0); MEAN CELL VOLUME 89 fl (80.0-100.0); MEAN CORPUSCULAR HEMOGLOBIN 28 pg (27.0-31.0); MEAN CORPUSCULAR HGB CONC 32 g/dl (33.0-37.0); MEAN PLATELET VOLUME 11.4 fl (7.4-10.4); MONO # 0.5 (0.1-0.6); PLATELET COUNT 224 K/mm3 (130-400); RED BLOOD COUNT 3.38 M/mm3 (4.10-5.30); REDCELL DISTRIBUTION WIDTH-CV 17.6 % (11.5-14.5)
[2020-05-09 10:08] LABS: ALBUMIN 2.9 gm/dL (3.5-5.0); BILIRUBIN,TOTAL 1.4 mg/dL (0.0-1.0); C-REACTIVE PROTEIN 1.6 mg/dL (0.0-0.9); CALCIUM 8.4 mg/dL (8.4-10.2); CREATININE, serum 1.11 (0.52-1.25); POTASSIUM 3.6 mmol/L (3.4-5.0); TOTAL PROTEIN 6.2 gm/dL (6.4-8.2)
[2020-05-09 11:43] VITALS: BP 102/68; PULSE 68; TEMP 98.3
--- NOTE | 2020-05-09 16:08 | NUR ---
[employer] attempted to meet with patient to complete initial intake however patient was sleeping. Patient's daughter, Rosa Elena (ph#[phone]) is at bedside and answered intake questions. Patient lives in [place] at the [facility]. Rosa Elena advised patient has lived at the mot for a long time. Rosa Elena believes patient either obtains her medications from [facility] or [facility]. Patient has a walker and CPAP at home. Rosa Elena advised patient was independent with ADLS until she had the spider bite which has caused some mobility issues. INOCENTE reviewed OT recommendation for post acute rehab and Rosa Elena states patient will likely not be agreeable to rehab, but would possibly be open to Home Health services. Rosa Elena states they would be interested in SW contacting [facility]. Rosa Elena reports obtaining HH in the past has been a challenge as patient lives in a motel. INOCENTE inquired about Advance Directives and Rosa Elena advised patient completed them previously when she was at [facility]. INOCENTE contacted Hannah at [facility] to provide information verbally about referral and faxed clinical information. INOCENTE also contacted the records department at [facility] and obtained copy of patient's DPOA-HC. Patient's daughter, Rosa Elena is designated. INOCENTE placed a copy of this paperwork on patient's chart. INOCENTE will continue to follow.
[2020-05-09 16:47] VITALS: BP 101/64; PULSE 69; TEMP 97.9
--- NOTE | 2020-05-09 18:50 | NUR ---
Pt sleeping upon entry to room around 1730. Pt looked to need situating in bed. Pt laying crooked. This nurse in to give pt 1700 meds. Pt awakened, needed to get situated in bed, stated she "needed a minute", speech mumbled upon waking up. Pt asking about percocet. Once pt was sitting up she was burping and stated she felt like she needed to throw up, provided w/ basin and proceeed to throw up twice, hernandez to green liquid, no blood seen. This nurse NEGIN walker zofran ordered and administered per may. Pt was sleeping upon entry. No PO meds given for 1700. Report given to ANGY lizarraga.
[2020-05-09 19:14] VITALS: BP 112/66; PULSE 68; TEMP 97.5
--- NOTE | 2020-05-09 22:02 | NUR ---
Pt 02 found to be 83% upon assessment. Lethargic and mininmal reponse to verbal commands. Will wake up briefly but goes right back to sleep. Neuro intact. 2L N/C brings it up 98%. RT called for assess. Edwina KAM notifed of pt status. She assessed and placed orders. Oral meds on hold, pt NPO. CT head and chest xray ordered,drug screen and abg. Report pt did have episode of vomiting during day shift. Monitoring radha and will update edwina as test come in.
[2020-05-09 22:13] LABS: ARTERIAL BLD GAS TCO2 CT 28.6; ARTERIAL BLOOD GAS BASE EXCESS 0.8 (-2-2); ARTERIAL BLOOD GAS PCO2 50.3 mmHg (35-45); ARTERIAL BLOOD GAS PO2 96.5 mmHg (80-100); ARTERIAL BLOOD GAS pH 7.35 (7.35-7.45)
[2020-05-10 00:07] VITALS: BP 100/58; PULSE 70; TEMP 98.1
--- NOTE | 2020-05-10 00:57 | NUR ---
Pt wakes and ask to eat but yet falls back asleep. Corinne KAM notifed of pt being slightly more awake. Explained to pt she can not have anything by mouth at this time due to her being minimally repsonsive, she states she does not remember not being aware. Continue to monitor. If pt becomes awake and rn feels she is safe to eat, may start clears.
--- NOTE | 2020-05-10 02:02 | NUR ---
PT AWAKE AND ALERTX4 NOW. SITTING UP IN BED ASKING FOR LIQUIDS. SIP OF WATER GIVEN WITHOUT DIFFICULTY. PER RODNEY PA MAY GIVE CLEARS LIQ AT RN DESCRETION WHEN FEELS MAY CONSUME SAFLEY.
--- NOTE | 2020-05-10 04:03 | NUR ---
Pt is very grogy with rounds, wakes up long enough to ask for pain meds and goes back to right back to sleep. I did give her a sip of water when she was completely awake and she tolerated well. Cont to monitoring for safe intake. No liquids at bedside.
[2020-05-10 04:20] VITALS: BP 116/58; PULSE 73; TEMP 97.3
--- NOTE | 2020-05-10 05:06 | NUR ---
pt had episode of vomiting/dry heaving. Minimal clear liquid came up . Pt cleaned up and postioned upright. Asking for food after dry heaving. Explained to her it is not safe at this time as she is at risk to aspirate.
--- NOTE | 2020-05-10 06:56 | NUR ---
bedside shift report received from ANGY Garcia
--- NOTE | 2020-05-10 08:00 | NUR ---
awake sitting up on side of bed marco and wanting to know why she can't eat, trying to explain and she continues to mae and bony, at this nurse and FLOORING MACHINE OPERATOR, again, tried to explain to her, did obtain diet order, when she tried to order she was then angry and cussing at dietary staff because she coldn't have the food she wanted due to dietary restrictions, told me to stay out of her business with explitives, left room
[2020-05-10 08:27] LABS: COLLECTION METHOD CLEAN CATCH
--- NOTE | 2020-05-10 08:30 | NUR ---
entered room again and she is now quiet and apologizing, meds given and breakfast served, c/os pain to right foot, toes on right foot on the bottom are black in color, both feet have +3 edema, will let her eat breakfast and will complete assessment later,
[2020-05-10 08:37] LABS: MUCOUS Present /lpf; PH 5 (5-8); URINE APPEARANCE Cloudy; URINE BACTERIA Rare /hpf; URINE BILIRUBIN Negative (NEGATIVE); URINE BLOOD Negative (NEGATIVE); URINE COLOR Amber; URINE GLUCOSE Negative (NEGATIVE); URINE KETONE Negative (NEGATIVE); URINE LEUKOCYTE ESTERASE Negative (NEGATIVE); URINE NITRATE Negative (NEGATIVE); URINE PROTEIN(semi-quant) 1+ (NEGATIVE); URINE UROBILINOGEN >=4.0 mg/dL (NEGATIVE)
[2020-05-10 08:43] LABS: TRICYCLIC ANTIDEPRESS URINE POSITIVE
[2020-05-10 08:55] VITALS: BP 117/74; PULSE 74; TEMP 98.7
--- NOTE | 2020-05-10 09:00 | NUR ---
Dr ALEGRIA and care team in to see patient
[2020-05-10] MEDS ORDERED: MELATIN 3 MG-11 TAB PO (09:01)
--- NOTE | 2020-05-10 10:00 | NUR ---
remains sitting up on side of bed, medicated with xanax and percocet 1 tab pr her request for anxiety and pain, full assessment completed, see interventions for further info, up and about in room independently, has had no more outbursts and is pleasant and cooperative at this time
--- NOTE | 2020-05-10 10:19 | NUR ---
The patient is to discharge home today, 05/10 with [facility]. Services are PT/OT/Nursing and Wound care. Discharge orders faxed. There are no additional needs.
--- NOTE | 2020-05-10 11:06 | NUR ---
remains awake and alert and sitting up on side of bed talking on the phone, satadelso percocet is starting to help
[2020-05-10 11:13] VITALS: BP 114/96; PULSE 78; TEMP 98.7
--- NOTE | 2020-05-10 11:30 | NUR ---
remains sitting up on side of bed and talking on phone, asked about discharge and she will plan to go between 1300 and 1330
--- NOTE | 2020-05-10 14:07 | NUR ---
telemetry and INT discontinued, medicated with percocet 1 tab, discharge instructions given and verbalizes understanding
--- NOTE | 2020-05-10 14:41 | NUR ---
discharged per WC
--- NOTE | 2020-05-13 11:13 | NUR ---
Spoke with healthcare social worker, Waleska ROJAS, after talking with Debbie by phone. She reports that home health did not come to see her, that she is not taking her medications, and was resistent to calling her physician for follow up sooner. States her fiance is there with her to help her. Strongly encouraged her to call physician and talk with them about her situation.
--- NOTE | 2020-05-13 11:53 | NUR ---
[employer] spoke with Maday, Palliative RN who did a follow up phone call with patient. Per Maday, patient reports no one from Home Health has seen her and her medications are making her sick. SW contacted Heidi at [facility] who advised patient refused a nurse visit yesterday. Heidi will follow up with patient today.
== END 2020-05-10 14:41 | disposition home or self-care (01) ==
LOC: COL.ER 13:49 → MEDICAL 16:49 → COL.ER 16:49 → MEDICAL 16:50
PROVIDERS: Emergency Medicine; Physician Assistant; ADMIT Hospitalist
DX: E11.622 Type 2 diabetes mellitus with other skin ulcer (principal); I50.22 Chronic systolic (congestive) heart failure; L98.429 Non-pressure chronic ulcer of back with unspecified severity; B95.62 Methicillin resistant Staphylococcus aureus infection as the cause of diseases classified elsewhere; D64.9 Anemia, unspecified; E11.51 Type 2 diabetes mellitus with diabetic peripheral angiopathy without gangrene; E11.40 Type 2 diabetes mellitus with diabetic neuropathy, unspecified; I25.10 Atherosclerotic heart disease of native coronary artery without angina pectoris; I11.0 Hypertensive heart disease with heart failure; F32.9 Major depressive disorder, single episode, unspecified; F41.9 Anxiety disorder, unspecified; G47.00 Insomnia, unspecified; J44.9 Chronic obstructive pulmonary disease, unspecified; G47.33 Obstructive sleep apnea (adult) (pediatric); F17.210 Nicotine dependence, cigarettes, uncomplicated; I25.2 Old myocardial infarction; M79.661 Pain in right lower leg; M79.662 Pain in left lower leg; Z95.5 Presence of coronary angioplasty implant and graft; Z79.84 Long term (current) use of oral hypoglycemic drugs; Z79.82 Long term (current) use of aspirin; Z79.899 Other long term (current) drug therapy
CPT/HCPCS: 99222-AI; 99232-AI; 99239; G0378; J1940; J2270; J2405; J3370; J7050

== ENCOUNTER 2020-06-06 20:34 | Emergency (ER) | payer MEDICARE, MEDICAID ==
[~2020-06-06] VITALS: Ht 157.5 cm; Wt 90.9 kg
[~2020-06-06 20:34] MED LIST changes: +MELATIN 3 MG-11 TAB PO
[2020-06-06 20:44] VITALS: TEMP 97.7
[2020-06-06 21:52] LABS: BASO % 0.4 % (0.0-2.0); EOS # 0.1 (0.0-0.7); EOS % 0.8 % (0-4.0); GRAN # 5.3 (1.4-6.5); GRAN % 70.9 % (42.2-75.2); HEMOGLOBIN 11.2 g/dl (12.5-16.0); LYMPH # 1.3 (1.2-3.4); LYMPH % 17.9 % (20.0-51.0); MEAN CELL VOLUME 85 fl (80.0-100.0); MEAN CORPUSCULAR HEMOGLOBIN 27 pg (27.0-31.0); MEAN CORPUSCULAR HGB CONC 32 g/dl (33.0-37.0); MEAN PLATELET VOLUME 10.8 fl (7.4-10.4); MONO # 0.7 (0.1-0.6); MONO % 9.6 % (1.7-9.3); PLATELET COUNT 292 K/mm3 (130-400); RED BLOOD COUNT 4.09 M/mm3 (4.10-5.30); REDCELL DISTRIBUTION WIDTH-CV 17.7 % (11.5-14.5)
[2020-06-06 21:54] LABS: HEMATOCRIT 34.9 % (37.0-47.0)
[2020-06-06 22:04] LABS: ALBUMIN 3.8 gm/dL (3.5-5.0); BILIRUBIN,TOTAL 1.4 mg/dL (0.0-1.0); C-REACTIVE PROTEIN 1.1 mg/dL (0.0-0.9); CALCIUM 9.3 mg/dL (8.4-10.2); CREATININE, serum 0.96 (0.52-1.25); POTASSIUM 3.4 mmol/L (3.4-5.0); TOTAL PROTEIN 7.6 gm/dL (6.4-8.2)
[2020-06-06] MEDS ORDERED: DOXYCYCLINE 10100 MG PO (22:31)
[2020-06-06 23:47] VITALS: BP 144/76; PULSE 78
== END 2020-06-06 23:46 | disposition home or self-care (01) ==
LOC: COL.ER 20:34
PROVIDERS: Emergency Medicine
DX: L03.032 Cellulitis of left toe (principal); L03.031 Cellulitis of right toe; L60.0 Ingrowing nail; E11.40 Type 2 diabetes mellitus with diabetic neuropathy, unspecified; J44.9 Chronic obstructive pulmonary disease, unspecified; I25.2 Old myocardial infarction; F17.210 Nicotine dependence, cigarettes, uncomplicated; Z95.9 Presence of cardiac and vascular implant and graft, unspecified; Z79.02 Long term (current) use of antithrombotics/antiplatelets; Z79.82 Long term (current) use of aspirin; Z79.84 Long term (current) use of oral hypoglycemic drugs